=== PATIENT | female | born 1950 | race Caucasian/White ===

== ENCOUNTER 2023-05-16 13:00 | Outpatient (RCR) | payer MEDICARE, BC, SELFPAY | END 2023-06-17 17:03 | disposition home or self-care (01) | PROVIDERS: PCP Physician Assistant Medical; Visit Provider Family Medicine | DX: R07.81 Pleurodynia (principal); M54.9 Dorsalgia, unspecified; M54.6 Pain in thoracic spine; Z51.89 Encounter for other specified aftercare | CPT/HCPCS: 97110; 97140; 97161 ==